=== PATIENT | female | born 1995 | race African-American/Black ===

== ENCOUNTER 2018-01-16 10:17 | Emergency (ER) | payer MEDICAID ==
[~2018-01-16] VITALS: Ht 154.9 cm; Wt 59.1 kg
[2018-01-16] MEDS ORDERED: ONDANSETRON HCL 4 MG TABLET PO ONE (11:30)
[2018-01-16 13:45] VITALS: BP 117/68
== END 2018-01-16 13:46 | disposition home or self-care (01) ==
LOC: EMS 10:19
DX: S09.90XA Unspecified injury of head, initial encounter (principal); Z88.5 Allergy status to narcotic agent; W18.09XA Striking against other object with subsequent fall, initial encounter; Y93.89 Activity, other specified; Y92.89 Other specified places as the place of occurrence of the external cause; Y99.8 Other external cause status
CPT/HCPCS: 70450; 99284; Q0162